=== PATIENT | female | born 1975 | race Caucasian/White ===

== ENCOUNTER 2016-04-10 06:25 | Emergency (ER) | payer SELFPAY ==
[2016-04-10 06:39] VITALS: BP 112/80; PULSE 87; TEMP 97.9; BMI 22.8
--- NOTE | 2016-04-10 06:45 | PDOC ---
History of Present Illness - General Chief Complaint: Psychiatric Stated Complaint: anxiety Time Seen by Provider: 04/10/16 06:30 History Source: Patient Exam Limitations: No Limitations - History of Present Illness Initial Comments: 40 y f no known pmhx comes from [facility] where she has gone through difficult and stressful times. states she has seen doctors for this but stopped. wants " to be checked" denies specific complaints. family sts they want her committed to a hospital for mental problems but state she has never been suicidal or homicidal so does patient. verborrheic but aaox3. denies hallucinations. in the middle of the history, pt got up and stated she better leave after her request for sleeping pills was denied. pt allowed to walk out with family. patient stated she was going to see her psychiatrist at the [facility] today. Past History - Past Medical History Allergies/Adverse Reactions: Allergies No Known Allergies Allergy (Verified 04/10/16 06:30) Home Medications: Ambulatory Orders NK [No Known Home Medication] 04/10/16 LMP: 11/28/12 - Immunization History Tetanus Status: Unknown - Social History Smoking History: No Smoking Status: Never smoked Number of Cigarettes Per Day: 0 Alcohol Use: occasionally Drug Use: none *Physical Exam - Vital Signs Last Vital Signs Temp Pulse Resp BP Pulse Ox 97.9 F 87 17 112/80 98 04/10/16 06:29 04/10/16 06:29 04/10/16 06:29 04/10/16 06:29 04/10/16 06:29 - Physical Exam Comments: 04/10/16 06:45 pt refused exam Plan - Order(s) Order(s): Orders Medication Instructions Recorded NK [No Known Home Medication] 04/10/16 *DC/Admit/Observation/Transfer Diagnosis at time of Disposition: Anxiety - Discharge Dispostion Disposition: LEFT BEFORE MED [facility] Condition at time of disposition: Stable
== END 2016-04-10 06:49 | disposition left against medical advice (07) ==
LOC: FER 06:25
DX: Z53.21 Procedure and treatment not carried out due to patient leaving prior to being seen by health care provider (principal)
CPT/HCPCS: 99281-25

== ENCOUNTER 2016-06-22 00:06 | Emergency (ER) | payer OTHER ==
[2016-06-22 00:13] VITALS: BP 111/74; PULSE 83; TEMP 97.7; BMI 21.9
[2016-06-22] MEDS ORDERED: ONDANSETRON 4 MG/2 ML VIAL ONE (00:25)
[2016-06-22] MEDS ORDERED: ONDANSETRON 4 MG/2 ML VIAL IVPUSH ONE (00:31)
[2016-06-22] MEDS ORDERED: SODIUM CHLORIDE 1,000 ML IV STA (00:31)
--- NOTE | 2016-06-22 00:32 | PDOC ---
History of Present Illness - General Chief Complaint: Nausea/Vomiting Stated Complaint: VOMITING AND NAUSEA Time Seen by Provider: 06/22/16 00:08 - History of Present Illness Initial Comments: This 40-year-old woman with a history of depression but no other medical issues presents with 1 day history of nausea and vomiting. She had headache last evening for which she took ekgd-fac-swaagum analgesics but no fever/chills or other symptoms. Patient states that she is in a usual state of health this morning; she ate lunch at her mother's home(chicken/potato) within an hour, she had nausea followed by vomiting of semi- digested food followed by bile. Patient states that she had multiple episodes of vomiting and was unable to tolerate liquids without vomiting. She had a small amount of brownish material in the vomitus this evening but no josé miguel blood. She has not had any significant pain. There have been no loose stools. No history of fever/chills today and no further headache. No unusual food ingestions or outside prepared food . No recent travel Patient also has a rash involving skin around both eyes and upper cheeks the last several days. Patient states that she is prone to eczema and contact dermatitis. She believes that the rashes related to new makeup that she has used. 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 Past History - Past Medical History Allergies/Adverse Reactions: Allergies Allergy/AdvReac Type Severity Reaction Status Date / Time No Known Allergies Allergy Verified 06/22/16 00:08 Home Medications: Ambulatory Orders Olanzapine [Zyprexa] 5 mg PO DAILY 06/22/16 Ondansetron [Zofran Odt -] 4 mg SL BID PRN #8 od.tablet 06/22/16 Triamcinolone 0.025% Cream [Aristocort 0.025% Cream -] 1 applic TP DAILY #1 tube 06/22/16 Psychiatric Problems: Yes (DEPRESSION) Suicide Attempt (Hx): No - Psycho/Social/Smoking Cessation Hx Anxiety: No Suicidal Ideation: No Smoking Status: No Smoking History: Current some day smoker Have you smoked in the past 12 months: Yes Number of Cigarettes Smoked Daily: 1 Information on smoking cessation initiated: No Hx Alcohol Use: No Drug/Substance Use Hx: No Substance Use Type: None Hx Substance Use Treatment: No Review of Systems - Review of Systems Able to Perform ROS?: Yes Comments:: 12 point review of systems is negative except for what is noted in the history of present illness *Physical Exam - Vital Signs Last Vital Signs Temp Pulse Resp BP Pulse Ox 97.7 F 83 16 111/74 97 06/22/16 00:09 06/22/16 00:09 06/22/16 00:09 06/22/16 00:09 06/22/16 00:09 - Physical Exam Comments: GENERAL: Adult female, appearing somewhat weak but in no acute distress HEAD: Normal with no signs of trauma. EYES: PERRLA, EOMI, sclera anicteric, conjunctiva clear. ENT: Erythema , slight scaling of skin around both eyes and bilateral upper cheeks Ears normal, nares patent, oropharynx clear without exudates. Dry mucous membranes. NECK: Normal range of motion, supple without lymphadenopathy, JVD, or masses. LUNGS: Breath sounds equal, clear to auscultation bilaterally. No wheezes, and no crackles. HEART:Regular rate and rhythm, normal S1 and S2 without murmur, rub or gallop. ABDOMEN:.normal bowel sounds No guarding,tenderness or rebound.No masses No distention. EXTREMITIES: Normal range of motion, no edema. No clubbing or cyanosis. No erythema, or tenderness. NEUROLOGICAL: Cranial nerves II through XII grossly intact. Normal speech. No focal neurological deficits. MUSCULOSKELETAL: Back non-tender to palpation, no CVA tenderness SKIN: Warm, Dry, normal turgor, ED Treatment Course - LABORATORY CBC & Chemistry Diagram: 06/22/16 00:30 06/22/16 00:30 Progress Note - Progress Note Progress Note: 40-year-old woman with no significant medical history presents with several hours of nausea and vomiting. Of note, the patient has no abdominal pain and no fever/chills. Exam notable for dry mucous membranes but no abdominal tenderness or distention. Because patient has no significant abdominal pain and no abdominal tenderness, very unlikely that this nausea and vomiting is related to acute surgical issue or acute pancreatitis. IV access obtained and patient received a liter of normal saline/4 mg of Zofran IV. Because the patient had a small amount of brownish material in the vomitus that she produced in the ER, suggestive of small amount of gastric bleeding, she will receive Protonix 40 mg IV CBC/chemistry profile revealed very mild elevation of white blood cell count (10 ,200); no significant electrolyte abnormality seen and remainder of the profile is essentially normal. Patient states that she is comfortable after IV hydration with normal saline and 4 mg of Zofran. She was given 6 ounces of water by mouth which she tolerated well without recurrent nausea or vomiting. The patient will be discharged with instructions to continue clear liquids and advance diet very cautiously. Zofran ODT (# 8) will be prescribed to be used as frequently as twice a day as needed for nausea. Patient asked for mild steroid cream that she could use on her rash until she could be seen by her horse rancher and prescription for triamcinolone 0.025% cream will be sent to her pharmacy. She should plan on following up with her general medical doctor within the next day. She should return to the ER if her vomiting is persistently severe or if she develops pain/fever. *DC/Admit/Observation/Transfer Diagnosis at time of Disposition: Gastroenteritis - Discharge Dispostion Disposition: HOME Condition at time of disposition: Stable - Prescriptions Prescriptions: Triamcinolone 0.025% Cream [Aristocort 0.025% Cream -] 1 applic TP DAILY #1 tube Ondansetron [Zofran Odt -] 4 mg SL BID PRN #8 od.tablet PRN Reason: Nausea - Patient Instructions Printed Discharge Instructions: Viral Gastroenteritis Additional Instructions: clear liquids, advance diet slowly Return to ER if you develop fever/pain/persistent severe vomiting Follow-up with your doctor within the next 5 days
[2016-06-22] MEDS ORDERED: PANTOPRAZOLE SODIUM 40 MG in SODIUM CHLORIDE 100 ML IVPB ONE (01:01)
[2016-06-22] MEDS ORDERED: PANTOPRAZOLE SODIUM 40 MG VIAL ONE (01:02)
[2016-06-22 01:13] LABS: BASOPHIL 0.5 % (0-2.0); EOSINOPHIL 2.6 % (0-4.5); MCH 31.8 pg (25.7-33.7); MCHC 33.6 g/dl (32.0-36.0); MEAN CELL VOLUME 94.6 fl (80-96); MEAN PLT VOLUME 7.2 fl (7.5-11.1); NEUTROPHILS 75.3 % (42.8-82.8); PLATELET COUNT 306 K/MM3 (134-434); RDW 13.1 % (11.6-15.6); WHITE BLOOD COUNT 10.2 K/mm3 (4.0-10.0)
[2016-06-22 01:42] LABS: ALBUMIN 4.1 g/dl (3.4-5.0); ANION GAP 10 (8-16); CO2 31 mmol/L (21-32); CREATININE 0.7 mg/dL (0.55-1.02); GLUCOSE,RANDOM 119 mg/dL (74-106); SGOT/AST 22 U/L (15-37); SGPT/ALT 26 U/L (12-78)
[2016-06-22 01:44] LABS: ALK PHOS 64 U/L (45-117); BILIRUBIN,TOTAL 0.3 mg/dL (0.2-1.0); TOT PROT 7.1 g/dl (6.4-8.2)
== END 2016-06-22 01:56 | disposition home or self-care (01) ==
LOC: FER 00:06
PROC: 3E033GC Introduction of Other Therapeutic Substance into Peripheral Vein, Percutaneous Approach (ICD-10-PCS; principal; 2016-06-22)
PROC: 3E0337Z Introduction of Electrolytic and Water Balance Substance into Peripheral Vein, Percutaneous Approach (ICD-10-PCS; 2016-06-22)
DX: K52.9 Noninfective gastroenteritis and colitis, unspecified (principal); F17.210 Nicotine dependence, cigarettes, uncomplicated; F32.9 Major depressive disorder, single episode, unspecified
CPT/HCPCS: 36415; 80053; 85025; 96361; 96365; 96375; 99281-25

== ENCOUNTER 2016-11-03 10:30 | Emergency (ER) | payer OTHER ==
[2016-11-03 10:34] VITALS: BP 108/68; PULSE 72; TEMP 98.1; BMI 23.8
--- NOTE | 2016-11-03 11:09 | PDOC ---
History of Present Illness - General Chief Complaint: Rash Stated Complaint: RASH Time Seen by Provider: 11/03/16 10:43 - History of Present Illness Initial Comments: 11/03/16 11:58 11/03/16 11:52 Chief complaint: Rash History of present illness: Patient complains of a itchy rash present for approximately 1 month, but worse during the last several days. Present mostly on the trunk but also involving the proximal extremities. She thinks it may be an ALLERGY, but has no ALLERGY history and is not aware of any contact or food exposure that is suspicious. She has been using cortisone cream with only partial relief, but is scratching consistently. Review of systems: Denies fever/chills, URI symptoms, sore throat, cough, chest pain, shortness of breath, abdominal pain, nausea, vomiting, diarrhea, urinary tract symptoms, vaginal bleeding or discharge. LMP was 1 week ago. Periods are regular. She states that she is not Past medical history: Healthy female, denies any serious past medical or surgical illnesses, denies medication at present Social/family history reviewed and noncontributory Physical exam: Alert and oriented well-developed well-nourished no acute distress cheerful and cooperative Afebrile, vital signs normal HEENT clear Neck supple without bruit mass or nodes Chest clear CV regular without murmur rub or gallop Abdomen benign Neurological intact Skin: Eczematous rash moderately severe on the chest, breasts, abdomen, low back and buttocks, to lesser extent on the flexor surfaces of the arms. There is hyperkeratosis and I can defecation. There is no purulence or other sign of infection Impression: Suspect that dry skin developed the onset and with scratching became aggravated. Atopic dermatitis/eczema appears present now Plan: Short course of steroids, antihistamine for itching, skin care as noted in the discharge summary. Patient has an appointment with the adult care manager in early November which she is encouraged to keep and obtain further evaluation and treatment. She is informed of the risks benefits of steroid therapy and understands that there are complications with this therapy sometimes medical not be continued for an extended period of time. Past History - Past Medical History Allergies/Adverse Reactions: Allergies Allergy/AdvReac Type Severity Reaction Status Date / Time No Known Allergies Allergy Verified 11/03/16 10:32 Home Medications: Ambulatory Orders Hydroxyzine Pamoate [Vistaril -] 25 - 50 mg PO HS #30 capsule 11/03/16 Methylprednisolone [Medrol Dose Danielito] 4 mg PO ASDIR #21 tablet 11/03/16 Psychiatric Problems: Yes (DEPRESSION) Suicide Attempt (Hx): No - Psycho/Social/Smoking Cessation Hx Anxiety: No Suicidal Ideation: No Smoking Status: No Smoking History: Current some day smoker Have you smoked in the past 12 months: Yes Number of Cigarettes Smoked Daily: 1 Information on smoking cessation initiated: Yes 'Breaking Loose' booklet given: 11/03/16 Hx Alcohol Use: Yes Drug/Substance Use Hx: No Substance Use Type: Alcohol Hx Substance Use Treatment: No *Physical Exam - Vital Signs Last Vital Signs Temp Pulse Resp BP Pulse Ox 98.1 F 72 18 108/68 100 11/03/16 10:31 11/03/16 10:31 11/03/16 10:31 11/03/16 10:31 11/03/16 10:31 *DC/Admit/Observation/Transfer Diagnosis at time of Disposition: Eczema Qualifiers: Eczema type: intrinsic Qualified Code(s): L20.84 - Intrinsic (allergic) eczema - Discharge Dispostion Disposition: HOME Condition at time of disposition: Stable Admit: No - Prescriptions Prescriptions: Methylprednisolone [Medrol Dose Danielito] 4 mg PO ASDIR #21 tablet Hydroxyzine Pamoate [Vistaril -] 25 - 50 mg PO HS #30 capsule - Referrals Referrals: Sarah Lee [Staff Physician] - 1 week - Patient Instructions Printed Discharge Instructions: DI for Atopic Dermatitis - Adult Additional Instructions: No hot baths or showers. Lukewarm water is preferable Apply large amounts of thick skin moisturizing cream such as Eucerin or Vaseline intensive care several times a day, but especially immediately after leaving her showering. Use cortisone pills and anti-itching antihistamines as directed Cortisone pills should be limited to the specified time of the prescription See adult care manager as soon as possible for further evaluation and treatment.
== END 2016-11-03 11:25 | disposition home or self-care (01) ==
LOC: FER 10:30
DX: L20.84 Intrinsic (allergic) eczema (principal); F17.210 Nicotine dependence, cigarettes, uncomplicated; F32.9 Major depressive disorder, single episode, unspecified
CPT/HCPCS: 99281-25